=== PATIENT | male | born 1990 | race Two or more races ===

== ENCOUNTER 2017-04-12 20:14 | Emergency (ER) | payer OTHER ==
[~2017-04-12] VITALS: Ht 188 cm; Wt 102.5 kg
[2017-04-12] MEDS ORDERED: ONDANSETRON 4 MG TAB.RAPDIS ONE (20:27)
[2017-04-12 20:30] LABS: BASOPHILS % (AUTO) 0.3 % (0.0-2.0); EOSINOPHILS # (AUTO) 0.1 /CMM (0.0-0.7); EOSINOPHILS % (AUTO) 0.5 % (0.0-6.0); HEMATOCRIT 46 % (39-51); HEMOGLOBIN 15.6 g/dL (13.5-17.5); LYMPHOCYTES % (AUTO) 27.8 % (20.0-44.0); MEAN CORPUSCULAR HEMOGLOBIN 30 PG (26.0-33.0); MEAN CORPUSCULAR HGB CONC 34 g/dl (31.0-36.0); MEAN CORPUSCULAR VOLUME 87 fL (80-96); MONOCYTES # (AUTO) 0.7 /CMM (0.1-1.30); NEUTROPHILS # (AUTO) 7.1 /CMM (1.8-8.9); NEUTROPHILS % (AUTO) 65.4 % (43.0-81.0); PLATELET COUNT (AUTO) 203 /CMM (150-450); RDW COEFFICIENT OF VARIATION 12.6 (11.5-15.0); RED BLOOD CELL COUNT(AUTO) 5.29 MIL/uL (4.5-6.0); WHITE BLOOD COUNT (AUTO) 10.9 K/uL (4.3-11.0)
[2017-04-12] MEDS ORDERED: ONDANSETRON 4 MG TAB.RAPDIS SL ONE (20:30)
--- NOTE | 2017-04-12 20:35 | NUR ---
PT BIB [facility] S/P ACCIDENTAL OD ON LEXAPRO, C/O FEELING "WEAK BUT NOT DIZZY OR NAUSEOUS". DENIES SI/HI. RESP EVEN UNLABORED. NAD NOTED. AMBULATORY WITH STEADY GAIT. WITH FRIEND AT BEDSIDE. IN ER BED 11 ON MONITOR.
--- NOTE | 2017-04-12 20:36 | NUR ---
PT TOOK [employer] SUBLINGUAL ORDERED AND DENIED NAUSEA AT THAT TIME. 2 MINUTES LATER, PT WAS SEEN TO BE DRY HEAVING WITH VERY SMALL AMOUNT OF VOMIT.
[2017-04-12 20:46] LABS: ALANINE AMINOTRANSFERASE 19 U/L (12-78); ALBUMIN 4.8 g/dL (3.4-5.0); ALCOHOL, BLOOD < 3 mg/dL (0-0); ALKALINE PHOSPHATASE 73 U/L (46-116); ASPARTATE AMINOTRANSFERASE 14 U/L (15-37); BILIRUBIN,DIRECT 0.2 mg/dL (0.0-0.2); BILIRUBIN,TOTAL 1.2 mg/dL (0.2-1.0); CALCIUM, SERUM 9.3 mg/dL (8.5-10.1); CARBON DIOXIDE 26 mmol/L (21-32); CHLORIDE 105 mmol/L (98-107); GFR 90 mL/min (>60); GLUCOSE 134 mg/dL (74-106); POTASSIUM 3.6 mmol/L (3.5-5.1); SODIUM SERUM 143 mmol/L (136-145); TOTAL PROTEIN, SERUM 8.5 g/dL (6.4-8.2); UREA NITROGEN, BLOOD 12 mg/dL (7-18)
[2017-04-12 20:47] LABS: ACETAMINOPHEN < 2 ug/ml (10-30); SALICYLATE < 2.8 mg/dL (2.8-20.0)
--- NOTE | 2017-04-12 21:04 | NUR ---
CALLED [facility] FOR PSYCH EVAL, ETA WITHIN THE HOUR
--- NOTE | 2017-04-12 21:09 | NUR ---
CALLED [facility] TO CANCEL PSYCH EVAL
--- NOTE | 2017-04-12 22:11 | NUR ---
RESTINGQUIETLY, NAD NOTED. NO FURTHER EPISODES OF VOMITING. AMBULATED TO RESTROOM WITH STEADY GAIT. VSS. ALL NEEDS ATTENDED TO.
--- NOTE | 2017-04-12 22:49 | NUR ---
PT MOVED TO RM 7 FOR CLOSER OBSERVATION. NAD NOTED. ON MONITOR.
--- NOTE | 2017-04-12 22:50 | NUR ---
REPORT GIVEN TO SORAIDA ELIAS FOR [facility]
--- NOTE | 2017-04-12 23:50 | NUR ---
vss. patient is awake alert, no sob. denies any pain/n/v or discomfort. needs attended.
--- NOTE | 2017-04-13 01:45 | NUR ---
vss. patient is asleep. easily arousable. will continue to monitor.
--- NOTE | 2017-04-13 05:14 | NUR ---
URINE COLLECTED. CALLED LAB FOR INFORMATION SYSTEMS PLANNER.
[2017-04-13 05:28] LABS: APPEARANCE,URINE CLEAR (CLEAR); BILIRUBIN,URINE 1+ (NEGATIVE); BLOOD, URINE NEGATIVE Ery/uL (NEGATIVE); COLOR,URINE DARK YELLO (YELLOW); KETONES,URINE 3+ (NEGATIVE); LEUKOCYTE ESTERASE ,URINE NEGATIVE (NEGATIVE); NITRITE, URINE NEGATIVE (NEGATIVE); PROTEIN,URINE 1+ mg/dl (NEGATIVE); UGLUCOSE NEGATIVE (NEGATIVE); UROBILINOGEN,URINE 0.2 EU/dL (0.2)
[2017-04-13 05:37] LABS: CANNABINOID, URINE POSITIVE (NEGATIVE); PHENCYCLIDINE SCREEN,URINE NEGATIVE (NEGATIVE)
[2017-04-13 05:38] LABS: ADD URINE CULTURE NO; BACTERIA,URINE None seen /HPF (None Seen); MUCUS,URINE Rare /LPF (None Seen); RBC,URINE 0-2 /HPF (0-2); SQUAMOUS EPITHELIAL CELL,UR Rare /HPF (None Seen); WBC,URINE 0-2 /HPF (0-3)
--- NOTE | 2017-04-13 07:30 | NUR ---
NO ACUTE CHANGES. VSS. ENDORSED CARE TO [facility] ELIAS.
--- NOTE | 2017-04-13 07:31 | NUR ---
RECEIVED REPORT FROM SORAIDA FOR [facility]
--- NOTE | 2017-04-13 09:15 | NUR ---
[facility] GOEL CALLED [phone] ETA 60 MIN
[2017-04-13 11:06] VITALS: BP 141/76
--- NOTE | 2017-04-13 11:06 | NUR ---
Patient discharged to home in stable condition. Written and verbal after care instructions given. Patient verbalizes understanding of instruction. OK TO DC HOME PE SENIOR BI DEVELOPER AND ED PROVIDER. Pt is ambulatory with a steady gait. NAD. VS WNL.
== END 2017-04-13 11:07 | disposition home or self-care (01) ==
LOC: ER 20:16
DX: R45.851 Suicidal ideations (principal); F32.9 Major depressive disorder, single episode, unspecified
CPT/HCPCS: 36415; 80048-TC; 80076-TC; 80305; 81000-TC; 85025-TC; A4606; G0480; G6039-TC; Q0162; Z7610